=== PATIENT | female | born 1995 | race Caucasian/White ===

== ENCOUNTER → 2020-08-06 | Outpatient (CLI) | payer OTHER | LOC: OD 11:45 | PROVIDERS: ATTEND Family Medicine | DX: E01.0 Iodine-deficiency related diffuse (endemic) goiter (principal) | CPT/HCPCS: 36415; 84443 ==

== ENCOUNTER → 2020-08-20 | Outpatient (CLI) | payer OTHER ==
--- NOTE | 2020-08-20 13:48 | RADIOLOGY REPORT (SQ) ---
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 TECHNIQUE: Dynamic and static ku-scale images acquired of the thyroid gland. Selected additional c olor/power Doppler images recorded. All images stored to PACS. LIMITATIONS: None. FINDINGS: RIGHT LOBE: 5.0 x 1.3 x 1.8 cm. Heterogeneous echotexture. No cystic or solid masses. LEFT LOBE: 4.0 x 1.6 x 1.6 cm. Heterogeneous echotexture. No cystic or solid masses. ISTHMUS: 0.4 cm. Heterogeneous echotexture. No cystic or solid masses. OTHER: No other significant finding. IMPRESSION: Heterogeneous echotexture throughout. Symmetric size. No focal masses. TECHNICAL DOCUMENTATION: JOB ID: [id number] 2010 [employer]- All Rights Reserved Reading location - IP/workstation name: [email or web address]
== END ==
LOC: RAD 12:52
PROVIDERS: ATTEND Family Medicine
DX: E01.0 Iodine-deficiency related diffuse (endemic) goiter (principal)
CPT/HCPCS: 76536